=== PATIENT | female | born 1960 | race Caucasian/White ===

== ENCOUNTER 2017-07-22 12:23 | Emergency (ER) | payer MEDICAID, OTHER ==
[~2017-07-22] VITALS: Ht 165.1 cm; Wt 55.6 kg
[2017-07-22 12:33] VITALS: BP 110/66
== END 2017-07-22 13:40 | disposition home or self-care (01) ==
LOC: ED 13:33
DX: S43.421A Sprain of right rotator cuff capsule, initial encounter (principal); S30.0XXA Contusion of lower back and pelvis, initial encounter; W01.0XXA Fall on same level from slipping, tripping and stumbling without subsequent striking against object, initial encounter; Y93.01 Activity, walking, marching and hiking; Y99.8 Other external cause status; Y92.89 Other specified places as the place of occurrence of the external cause
CPT/HCPCS: 72220; 99284